=== PATIENT | male | born 1985 | race Caucasian/White ===

== ENCOUNTER 2019-03-11 14:49 | Emergency (ER) | payer SELFPAY ==
[~2019-03-11] VITALS: Ht 175.3 cm; Wt 104.3 kg
--- NOTE | 2019-03-11 15:01 | NUR ---
PT AMBULATED TO ER BED 02
[2019-03-11 15:10] VITALS: BP 156/110
--- NOTE | 2019-03-11 15:10 | NUR ---
33 Y/O M C/C BILATERAL EYE REDNESS. PER PT REDNESS ON RIGHT EYE BEGUN YESTERDAY; LEFT EYE BEGUN TUESDAY. PT DENIES TRAUMA, SCRATCHING. PER PT BELIEVES IT COULD HAVE BEEN EYE DROPS HE USED FOR FIRST TIME. PUPILS PERRLA. NEURO WDL. VISION INTACT. PT NKA. NO HX. NO RX. NO N/V/D. SIDE RAIL X1.
[2019-03-11 16:08] VITALS: BP 142/98
--- NOTE | 2019-03-11 16:08 | NUR ---
Patient discharged with v/s stable. Written and verbal after care instructions given and explained. Patient alert, oriented and verbalized understanding of instructions. Ambulatory with steady gait. All questions addressed prior to discharge. ID band removed. Patient advised to follow up with PMD. Rx of POLYTRIM given. Patient educated on indication of medication including possible reaction and side effects. Opportunity to ask questions provided and answered.
== END 2019-03-11 16:08 | disposition home or self-care (01) ==
LOC: MED 14:49
DX: H10.9 Unspecified conjunctivitis (principal)
CPT/HCPCS: 99283

== ENCOUNTER 2019-03-17 14:50 | Emergency (ER) | payer SELFPAY ==
[~2019-03-17] VITALS: Ht 175.3 cm; Wt 104.3 kg
[2019-03-17 14:55] VITALS: BP 137/80
--- NOTE | 2019-03-17 14:58 | NUR ---
VISUAL ACUITY BOTH EYES 20/25, RT 20/25, LT EYE 20/25 TO [facility] A/W BED AMBULATORY
--- NOTE | 2019-03-17 16:43 | NUR ---
Dr. Lopez is evaluating the patient at bedside.
--- NOTE | 2019-03-17 16:56 | NUR ---
PATIENT PRESENTS TO ED WITH BILATERAL EYE PAIN AND REDNESS X 6 DAYS. WITH NOTED DISCHARGE. DENIES ANY TRAUMA TO EYES. PT STATES BURNING PAIN OF 5/10. HE WAS SEEN AT THE ER 6 DAYS AGO AND WAS GIVEN UNRECALLED EYE DROPS WHICH PROVIDED NO RELIEF. PT WITH MILD BLURRING OF VISION. PT DENIES ANY FEVER AT THIS TIME; VSS; PATIENT POSITIONED FOR COMFORT; HOB ELEVATED; BEDRAILS UP X2; BED DOWN. ER MD MADE AWARE OF PT STATUS. PMH: NONE MEDS: U/R EYEDROPS, IBUPROFEN ALLERGIES: NONE
--- NOTE | 2019-03-17 17:00 | NUR ---
Patient discharged with v/s stable. Written and verbal after care instructions given and explained. Patient alert, oriented and verbalized understanding of instructions. Ambulatory with steady gait. All questions addressed prior to discharge. ID band removed. Patient advised to follow up with PMD. Rx of CIPROFLOXACIN OPHTHALMIC SOLUTION given. Patient educated on indication of medication including possible reaction and side effects. Opportunity to ask questions provided and answered.
[2019-03-17 17:10] VITALS: BP 137/80
== END 2019-03-17 17:00 | disposition home or self-care (01) ==
LOC: MED 14:50
DX: H10.89 Other conjunctivitis (principal)
CPT/HCPCS: 99282